=== PATIENT | male | born 1985 | race Caucasian/White ===

== ENCOUNTER 2020-01-24 20:26 | Emergency (ER) | payer MEDICAID ==
[2020-01-24] MEDS ORDERED: Sodium Chloride 0.9% 1,000 ML IV ONE (20:41)
--- NOTE | 2020-01-24 20:55 | EDM.PDOC ---
ED HPI GENERAL MEDICAL PROBLEM - General Chief Complaint: Neuro Symptoms/Deficits Stated Complaint: over dose Time Seen by Provider: 01/24/20 20:26 Source of Information: Reports: Police History Limitations: Reports: Altered Mental Status, Intoxication - History of Present Illness INITIAL COMMENTS - FREE TEXT/NARRATIVE: unable to give history suspect etoh itnox - Related Data Allergies Allergy/AdvReac Type Severity Reaction Status Date / Time No Known Allergies Allergy Unverified 01/24/20 20:55 Home Meds: Home Meds . [No Known Home Meds] 09/21/14 [History] ED ROS GENERAL - Review of Systems Review Of Systems: See Below - Physical Exam Exam: See Below Exam Limited By: Altered Mental Status General Appearance: Obtunded Eye Exam: Bilateral Eye: Other (pupils were reactive, 2mm ) Ears: Normal External Exam Nose: Normal Inspection Head Exam: Atraumatic Respiratory/Chest: Lungs Clear Cardiovascular: Normal Peripheral Pulses GI/Abdominal: Soft Neuro Exam (Abbreviated): Other (comatose) Back Exam: Other Extremities: Normal Inspection ED Add Procedures - Additional/Other Procedure(s) Procedure(s) (Free Text): endotracheal intubation Patient was intubated for airway protection. 7.5 ET tube, glidescope, confirmed with direct visualization, color change and capnography ( good waveform) CXr reviewed, tube re-adjusted hd stable 1st try Course - Vital Signs Last Recorded V/S: Last Vital Signs Temp 96.7 F L 01/24/20 20:51 Pulse 87 01/25/20 00:00 Resp 19 01/25/20 00:00 BP 103/52 L 01/25/20 00:00 Pulse Ox 97 01/25/20 00:00 - Orders/Labs/Meds Labs: Laboratory Tests 01/24/20 01/24/20 01/24/20 Range/Units 20:25 20:25 20:35 WBC 13.91 H (4.0-11.0) K/uL RBC 4.98 (4.50-5.90) M/uL Hgb 16.3 (13.0-17.0) g/dL Hct 48.9 (38.0-50.0) % MCV 98.2 H (80.0-98.0) fL MCH 32.7 H (27.0-32.0) pg MCHC 33.3 (31.0-37.0) g/dL RDW Std Deviation 51.5 (28.0-62.0) fl RDW Coeff of [place] 14 (11.0-15.0) % Plt Count 305 (150-400) K/uL MPV 8.60 (7.40-12.00) fL Neut % (Auto) 51.5 (48.0-80.0) % Lymph % (Auto) 37.4 (16.0-40.0) % [place] % (Auto) 7.8 (0.0-15.0) % Eos % (Auto) 2.7 (0.0-7.0) % Baso % (Auto) 0.6 (0.0-1.5) % Neut # (Auto) 7.2 H (1.4-5.7) K/uL Lymph # (Auto) 5.2 H (0.6-2.4) K/uL [place] # (Auto) 1.1 H (0.0-0.8) K/uL Eos # (Auto) 0.4 (0.0-0.7) K/uL Baso # (Auto) 0.1 (0.0-0.1) K/uL Add Manual Diff Neutrophils % (Manual) (48.0-80.0) % Lymphocytes % (Manual) (16.0-40.0) % Monocytes % (Manual) (0.0-15.0) % Nucleated RBC % 0.0 /100WBC Absolute Seg Neuts (1.4-5.7) Lymphocytes # (Manual) (0.6-2.4) Monocytes # (Manual) (0.0-0.8) Nucleated RBCs # 0 K/uL VBG pH (7.31-7.41) VBG pCO2 (35-45) mmHG VBG pO2 (30-40) mmHG VBG HCO3 (22-30) mEq/L VBG Total CO2 (41-51) mmol/L VBG Base Excess (-3.0-3.0) Sodium 143 (136-148) mmol/L Potassium 3.2 L (3.5-5.1) mmol/L Chloride 104 (98-107) mmol/L Carbon Dioxide 25.0 (21.0-32.0) mmol/L BUN 8 (7.0-18.0) mg/dL Creatinine 0.8 (0.8-1.3) mg/dL Est Cr Clr Drug Dosing TNP Estimated GFR (MDRD) > 60.0 ml/min Glucose 110 H (74-106) mg/dL Calcium 8.0 L (8.5-10.1) mg/dL Total Bilirubin 0.3 (0.2-1.0) mg/dL AST 29 (15-37) IU/L ALT 21 (14-63) IU/L Alkaline Phosphatase 125 H (46-116) U/L Troponin I (0.000-0.056) ng/mL Total Protein 7.5 (6.4-8.2) g/dL Albumin 3.8 (3.4-5.0) g/dL Globulin 3.7 (2.6-4.0) g/dL Albumin/Globulin Ratio 1.0 (0.9-1.6) Urine Color YELLOW Urine Appearance CLEAR Urine pH 6.0 (5.0-8.0) Ur Specific [place] <= 1.005 (1.001-1.035) Urine Protein NEGATIVE (NEGATIVE) mg/dL Urine Glucose (UA) NEGATIVE (NEGATIVE) mg/dL Urine Ketones NEGATIVE (NEGATIVE) mg/dL Urine Occult Blood NEGATIVE (NEGATIVE) Urine Nitrite NEGATIVE (NEGATIVE) Urine Bilirubin NEGATIVE (NEGATIVE) Urine Urobilinogen 0.2 (<2.0) EU/dL Ur Leukocyte Esterase NEGATIVE (NEGATIVE) Urine Opiates Screen (NEGATIVE) Ur Oxycodone Screen (NEGATIVE) Urine Methadone Screen (NEGATIVE) Ur Barbiturates Screen (NEGATIVE) Ur Phencyclidine Scrn (NEGATIVE) Ur Amphetamine Screen (NEGATIVE) U Methamphetamines Scrn (NEGATIVE) U Benzodiazepines Scrn (NEGATIVE) U Cocaine Metab Screen (NEGATIVE) U Marijuana (THC) Screen (NEGATIVE) Ethyl Alcohol 595 mg/dL 01/24/20 01/25/20 01/25/20 Range/Units 20:35 01:25 01:25 WBC 11.00 (4.0-11.0) K/uL RBC 4.68 (4.50-5.90) M/uL Hgb 15.1 (13.0-17.0) g/dL Hct 45.7 (38.0-50.0) % MCV 97.6 (80.0-98.0) fL MCH 32.3 H (27.0-32.0) pg MCHC 33.0 (31.0-37.0) g/dL RDW Std Deviation 50.0 (28.0-62.0) fl RDW Coeff of [place] 14 (11.0-15.0) % Plt Count 260 (150-400) K/uL MPV 8.40 (7.40-12.00) fL Neut % (Auto) (48.0-80.0) % Lymph % (Auto) (16.0-40.0) % [place] % (Auto) (0.0-15.0) % Eos % (Auto) (0.0-7.0) % Baso % (Auto) (0.0-1.5) % Neut # (Auto) (1.4-5.7) K/uL Lymph # (Auto) (0.6-2.4) K/uL [place] # (Auto) (0.0-0.8) K/uL Eos # (Auto) (0.0-0.7) K/uL Baso # (Auto) (0.0-0.1) K/uL Add Manual Diff YES Neutrophils % (Manual) 49 (48.0-80.0) % Lymphocytes % (Manual) 45 H (16.0-40.0) % Monocytes % (Manual) 6 (0.0-15.0) % Nucleated RBC % /100WBC Absolute Seg Neuts 5.4 (1.4-5.7) Lymphocytes # (Manual) 5.0 H (0.6-2.4) Monocytes # (Manual) 0.7 (0.0-0.8) Nucleated RBCs # K/uL VBG pH 7.29 L (7.31-7.41) VBG pCO2 57 H (35-45) mmHG VBG pO2 87 H (30-40) mmHG VBG HCO3 27 (22-30) mEq/L VBG Total CO2 24 L (41-51) mmol/L VBG Base Excess -0.8 (-3.0-3.0) Sodium (136-148) mmol/L Potassium (3.5-5.1) mmol/L Chloride (98-107) mmol/L Carbon Dioxide (21.0-32.0) mmol/L BUN (7.0-18.0) mg/dL Creatinine (0.8-1.3) mg/dL Est Cr Clr Drug Dosing Estimated GFR (MDRD) ml/min Glucose (74-106) mg/dL Calcium (8.5-10.1) mg/dL Total Bilirubin (0.2-1.0) mg/dL AST (15-37) IU/L ALT (14-63) IU/L Alkaline Phosphatase (46-116) U/L Troponin I (0.000-0.056) ng/mL Total Protein (6.4-8.2) g/dL Albumin (3.4-5.0) g/dL Globulin (2.6-4.0) g/dL Albumin/Globulin Ratio (0.9-1.6) Urine Color Urine Appearance Urine pH (5.0-8.0) Ur Specific [place] (1.001-1.035) Urine Protein (NEGATIVE) mg/dL Urine Glucose (UA) (NEGATIVE) mg/dL Urine Ketones (NEGATIVE) mg/dL Urine Occult Blood (NEGATIVE) Urine Nitrite (NEGATIVE) Urine Bilirubin (NEGATIVE) Urine Urobilinogen (<2.0) EU/dL Ur Leukocyte Esterase (NEGATIVE) Urine Opiates Screen NEGATIVE (NEGATIVE) Ur Oxycodone Screen NEGATIVE (NEGATIVE) Urine Methadone Screen NEGATIVE (NEGATIVE) Ur Barbiturates Screen NEGATIVE (NEGATIVE) Ur Phencyclidine Scrn NEGATIVE (NEGATIVE) Ur Amphetamine Screen NEGATIVE (NEGATIVE) U Methamphetamines Scrn NEGATIVE (NEGATIVE) U Benzodiazepines Scrn NEGATIVE (NEGATIVE) U Cocaine Metab Screen NEGATIVE (NEGATIVE) U Marijuana (THC) Screen NEGATIVE (NEGATIVE) Ethyl Alcohol mg/dL 01/25/20 Range/Units 01:25 WBC (4.0-11.0) K/uL RBC (4.50-5.90) M/uL Hgb (13.0-17.0) g/dL Hct (38.0-50.0) % MCV (80.0-98.0) fL MCH (27.0-32.0) pg MCHC (31.0-37.0) g/dL RDW Std Deviation (28.0-62.0) fl RDW Coeff of [place] (11.0-15.0) % Plt Count (150-400) K/uL MPV (7.40-12.00) fL Neut % (Auto) (48.0-80.0) % Lymph % (Auto) (16.0-40.0) % [place] % (Auto) (0.0-15.0) % Eos % (Auto) (0.0-7.0) % Baso % (Auto) (0.0-1.5) % Neut # (Auto) (1.4-5.7) K/uL Lymph # (Auto) (0.6-2.4) K/uL [place] # (Auto) (0.0-0.8) K/uL Eos # (Auto) (0.0-0.7) K/uL Baso # (Auto) (0.0-0.1) K/uL Add Manual Diff Neutrophils % (Manual) (48.0-80.0) % Lymphocytes % (Manual) (16.0-40.0) % Monocytes % (Manual) (0.0-15.0) % Nucleated RBC % /100WBC Absolute Seg Neuts (1.4-5.7) Lymphocytes # (Manual) (0.6-2.4) Monocytes # (Manual) (0.0-0.8) Nucleated RBCs # K/uL VBG pH (7.31-7.41) VBG pCO2 (35-45) mmHG VBG pO2 (30-40) mmHG VBG HCO3 (22-30) mEq/L VBG Total CO2 (41-51) mmol/L VBG Base Excess (-3.0-3.0) Sodium 149 H (136-148) mmol/L Potassium 4.4 (3.5-5.1) mmol/L Chloride 113 H (98-107) mmol/L Carbon Dioxide 27.6 (21.0-32.0) mmol/L BUN 9 (7.0-18.0) mg/dL Creatinine 0.8 (0.8-1.3) mg/dL Est Cr Clr Drug Dosing TNP Estimated GFR (MDRD) > 60.0 ml/min Glucose 102 (74-106) mg/dL Calcium 7.0 L (8.5-10.1) mg/dL Total Bilirubin 0.3 (0.2-1.0) mg/dL AST 29 (15-37) IU/L ALT 20 (14-63) IU/L Alkaline Phosphatase 100 (46-116) U/L Troponin I < 0.050 (0.000-0.056) ng/mL Total Protein 6.8 (6.4-8.2) g/dL Albumin 3.4 (3.4-5.0) g/dL Globulin 3.4 (2.6-4.0) g/dL Albumin/Globulin Ratio 1.0 (0.9-1.6) Urine Color Urine Appearance Urine pH (5.0-8.0) Ur Specific [place] (1.001-1.035) Urine Protein (NEGATIVE) mg/dL Urine Glucose (UA) (NEGATIVE) mg/dL Urine Ketones (NEGATIVE) mg/dL Urine Occult Blood (NEGATIVE) Urine Nitrite (NEGATIVE) Urine Bilirubin (NEGATIVE) Urine Urobilinogen (<2.0) EU/dL Ur Leukocyte Esterase (NEGATIVE) Urine Opiates Screen (NEGATIVE) Ur Oxycodone Screen (NEGATIVE) Urine Methadone Screen (NEGATIVE) Ur Barbiturates Screen (NEGATIVE) Ur Phencyclidine Scrn (NEGATIVE) Ur Amphetamine Screen (NEGATIVE) U Methamphetamines Scrn (NEGATIVE) U Benzodiazepines Scrn (NEGATIVE) U Cocaine Metab Screen (NEGATIVE) U Marijuana (THC) Screen (NEGATIVE) Ethyl Alcohol 416 mg/dL Meds: Medications Discontinued Medications Generic Name Dose Route Start Last Admin Trade Name Marlyn PRN Reason Stop Dose Admin Etomidate 10 mg 01/25/20 04:56 01/25/20 04:59 Amidate IVPUSH 01/25/20 04:57 10 mg ONETIME ONE Administration Haloperidol Lactate Confirm 01/25/20 00:25 01/25/20 03:24 Haldol Administered 01/25/20 00:26 Not Given Dose 5 mg .ROUTE .STK-MED ONE Haloperidol Lactate 5 mg 01/25/20 00:26 01/25/20 01:53 Haldol IM 01/25/20 00:27 5 mg ONETIME ONE Administration Sodium Chloride 1,000 mls @ 999 mls/hr 01/24/20 20:41 01/24/20 21:07 Normal Saline IV 01/24/20 21:41 999 mls/hr .Bolus ONE Administration Propofol Confirm 01/25/20 01:05 Diprivan 50 Ml Administered 01/25/20 01:06 Dose 50 mls @ as directed .ROUTE .STK-MED ONE Propofol Confirm 01/25/20 01:35 Diprivan 100 Ml Administered 01/25/20 01:36 Dose 100 mls @ as directed .ROUTE .STK-MED ONE Propofol 100 mls @ 0 mls/hr 01/25/20 05:15 Diprivan 100 Ml IV TITRATE RENATE Protocol 5 MCG/KG/MIN Sodium Chloride 1,000 mls @ 999 mls/hr 01/25/20 05:15 Normal Saline IV ASDIRECTED [facility] Lorazepam 2 mg 01/25/20 00:19 01/25/20 01:53 Ativan IVPUSH 01/25/20 00:20 2 mg ONETIME ONE Administration Lorazepam Confirm 01/25/20 00:20 01/25/20 05:00 Ativan Administered 01/25/20 00:21 Not Given Dose 2 mg .ROUTE .STK-MED ONE Lorazepam Confirm 01/25/20 01:27 01/25/20 05:02 Ativan Administered 01/25/20 01:28 Not Given Dose 4 mg .ROUTE .STK-MED ONE Lorazepam 4 mg 01/25/20 01:27 01/25/20 05:04 Ativan IVPUSH 01/25/20 01:28 4 mg ONETIME ONE Administration Midazolam HCl 2 mg 01/25/20 00:19 01/25/20 01:52 Versed 1 Mg/Ml IVPUSH 01/25/20 00:20 2 mg ONETIME ONE Administration Midazolam HCl Confirm 01/25/20 00:20 01/25/20 03:22 Versed 1 Mg/Ml Administered 01/25/20 00:21 Not Given Dose 2 mg .ROUTE .STK-MED ONE Midazolam HCl 4 mg 01/25/20 01:31 01/25/20 01:55 Versed 1 Mg/Ml IVPUSH 01/25/20 01:32 4 mg ONETIME ONE Administration Midazolam HCl Confirm 01/25/20 01:30 01/25/20 05:01 Versed 1 Mg/Ml Administered 01/25/20 01:31 Not Given Dose 4 mg .ROUTE .STK-MED ONE Propofol Confirm 01/25/20 01:35 Diprivan 20 Ml Administered 01/25/20 01:36 Dose 200 mg .ROUTE .STK-MED ONE Rocuronium [place] 100 mg 01/25/20 01:02 Zemuron .ROUTE 01/25/20 01:03 .STK-MED ONE Succinylcholine Chloride 100 mg 01/25/20 04:56 01/25/20 05:00 Succinylcholine Chloride IV 01/25/20 04:57 100 mg ONETIME ONE Administration - Re-Assessments/Exams Free Text/Narrative Re-Assessment/Exam: 01/24/20 20:52 arrived comatose, reportedly drinking all day at home, no head trauma (per "friends" that dropped him off who officer spoke to). on arrival patient was protecting airway, not responding to painful stimuli. O2 sat was normal. c collar placed. nasal trumpet placed. CT scan of head and c spine ordered. Suspect ETOH intox. will continue to monitor respiration. he RR remained normal throughout. 01/24/20 21:37 patient breathing normally. now opening eyes to verbal stimulus, withdrawing to pain. ETOH 565. CTH negative. 01/25/20 02:14 patient had to be chemically restrained, became aggressive and beligerent while intoxicated. we gave him ativan 2 mg IV and Versed 2 mg IV. those did not seem to work. Required 3 police officers to restrain. haldol was given. after that the patient became somnolent with decreased respiratory drive and hypoxia. he was intubated for airway protection and hypoxia. no immediate complications given succynylcholine, etomidate 10 Patient flown emergently to [facility] for elevated level of care. agitated delirium from etoh intoxication. complicated by hypoxia. Departure - Departure Time of Disposition: 04:00 Disposition: DC/Tfer to Acute Hospital 02 Clinical Impression: Intoxication - Discharge Information Referrals: PCP,None [Primary Care Provider] - Forms: ED Department Discharge Critical Care Note - Critical Care Note Total Time (mins): 120 Comments: severe etoh intoxication initally complicated by agitated delirium from etoh intoxication hypoxia, airway management AMS Sepsis Event Note - Focused Exam Date Exam was Performed: 01/26/20 Time Exam was Performed: 14:56
--- NOTE | 2020-01-24 21:06 | CT ---
Indication: Unresponsive, ETOH Technique: Nonenhanced axial CT imaging through the head. Sagittal and coronal reconstructions are provided. Comparison: None Findings: There is no intracranial hemorrhage, edema, or mass effect. There is normal attenuation of the brain parenchyma. The ventricles are normal in size. The basal cisterns are patent. The calvarium is intact. The mastoid air cells are aerated. There is mild paranasal sinus mucosal thickening without air-fluid level. Impression: No acute intracranial process. Please note that all CT scans at this facility use dose modulation, iterative reconstruction, and/or weight-based dosing when appropriate to reduce radiation dose to as low as reasonably achievable. Dictated by Jose L Jung MD @ Jan 24 2020 9:04PM Signed by Dr. Jose L Jung @ Jan 24 2020 9:04PM
[2020-01-24 21:07] LABS: BLOOD UREA NITROGEN,BUN 8 mg/dL (7.0-18.0); CHLORIDE,CL 104 mmol/L (98-107); GLUCOSE RANDOM 110 mg/dL (74-106); POTASSIUM,K 3.2 mmol/L (3.5-5.1); SODIUM,NA 143 mmol/L (136-148)
--- NOTE | 2020-01-24 21:52 | CT ---
Indication: Unresponsive, ETOH Technique: Nonenhanced axial CT imaging through the cervical spine. Sagittal and coronal reconstructions are provided. Comparison: None Findings: The cervical vertebral bodies are normal in height. No fracture is demonstrated. Spinal alignment is maintained. The atlantoaxial and atlantooccipital relationships are normal. There is no prevertebral edema. The intervertebral disc spaces are normal in height. There is no significant narrowing of the spinal canal or neural foramina. Impression: No acute fracture or traumatic malalignment. Please note that all CT scans at this facility use dose modulation, iterative reconstruction, and/or weight-based dosing when appropriate to reduce radiation dose to as low as reasonably achievable. Dictated by Jose L Jung MD @ Jan 24 2020 9:50PM Signed by Dr. Jose L Jung @ Jan 24 2020 9:50PM
--- NOTE | 2020-01-24 22:06 | CR ---
HISTORY: Unresponsive. ETOH. COMPARISON: None available FINDINGS: A portable supine AP view of the chest was obtained at 21 19 hours. The lungs are clear. No focal or diffuse infiltrates are present. The heart is normal in size. The mediastinum is normal in appearance. The osseous structures are normal in appearance for the patient`s age. IMPRESSION: Normal portable chest single view. Dictated by Jackson Doty MD @ Jan 24 2020 10:05PM Signed by Dr. Jackson Doty @ Jan 24 2020 10:06PM
[2020-01-25] MEDS ORDERED: LORazepam 2 MG/ML SDV IVPUSH ONE ×2 (00:19→01:27)
[2020-01-25] MEDS ORDERED: Midazolam 1 MG/ML 2 ML SDV IVPUSH ONE ×2 (00:19→01:31)
[2020-01-25] MEDS ORDERED: Midazolam 1 MG/ML 2 ML SDV ONE ×2 (00:20→01:30)
[2020-01-25] MEDS ORDERED: LORazepam 2 MG/ML SDV ONE ×2 (00:20→01:27)
[2020-01-25] MEDS ORDERED: Haloperidol Lactate 5 MG/ML SDV ONE (00:25)
[2020-01-25] MEDS ORDERED: Haloperidol Lactate 5 MG/ML SDV IM ONE (00:26)
[2020-01-25] MEDS ORDERED: Rocuronium 100 MG/10 ML MDV ONE (01:02)
[2020-01-25] MEDS ORDERED: propofoL 50 ML ONE (01:05)
[2020-01-25] MEDS ORDERED: Propofol 200 MG/20 ML SDV ONE (01:35)
[2020-01-25] MEDS ORDERED: propofoL 0 ML ONE (01:35)
--- NOTE | 2020-01-25 01:45 | CR ---
HISTORY: Status post intubation. COMPARISON: Firm yesterday at 2119 hours. FINDINGS: A portable erect AP view of the chest was obtained at 0118 hours. An endotracheal tube has been placed during the interval, with its tip in satisfactory position 1 centimeter below the thoracic inlet. A nasogastric tube has been placed during the interval and passes into the body of the stomach. External pacemaker leads have been applied. The lungs remain clear. No focal or diffuse infiltrates are present. The heart remains normal in size. The mediastinum is normal in appearance. The osseous structures are normal in appearance for the patient`s age. IMPRESSION: Satisfactory positioning of endotracheal and nasogastric tubes. No active disease seen in the chest. Dictated by Jackson Doty MD @ Jan 25 2020 1:37AM Signed by Dr. Jackson Doty @ Jan 25 2020 1:44AM
[2020-01-25 01:57] LABS: BLOOD UREA NITROGEN,BUN 9 mg/dL (7.0-18.0); CARBON DIOXIDE,CO2 27.6 mmol/L (21.0-32.0); CHLORIDE,CL 113 mmol/L (98-107); GLUCOSE RANDOM 102 mg/dL (74-106); POTASSIUM,K 4.4 mmol/L (3.5-5.1); SODIUM,NA 149 mmol/L (136-148)
[2020-01-25] MEDS ORDERED: Etomidate 2 MG/ML 20 ML SDV IVPUSH ONE (04:56)
[2020-01-25] MEDS ORDERED: Sodium Chloride 0.9% 1,000 ML IV SCH (05:15)
[2020-01-25] MEDS ORDERED: propofoL 100 ML IV SCH (05:15)
== END 2020-01-25 01:55 ==
LOC: MW.ED 20:26
DX: F10.129 Alcohol abuse with intoxication, unspecified (principal); Y90.8 Blood alcohol level of 240 mg/100 ml or more
CPT/HCPCS: 31500; 36415; 51702; 70450; 71045; 72125; 80053; 80305; 80307; 81003; 82803; 84484; 85025; 93005; 96361; 96374; 96375; 99291; 99292; J0330; J1630; J2060; J2250; J2704; J3490; J7030